=== PATIENT | female | born 1950 | race Caucasian/White ===

== ENCOUNTER → 2020-07-14 | Outpatient (CLI) | payer MEDICARE ==
[~2020-07-14] MED LIST: AMIT150T PO; IBUP-1223 PO; MELO15TA24 PO; OMEP20TA62 PO; ROPI5TAB4 PO; TRAZ50TA66 PO
[2020-07-14 14:01] LABS: BASOPHILS % (AUTO) 1 % (0-1); EOSINOPHILS % (AUTO) 1 % (1-7); LYMPHOCYTES % (AUTO) 29 % (22-44); MEAN CORPUSCULAR HEMOGLOBIN 31.2 pg (27.0-34.8); MEAN CORPUSCULAR HGB CONC 33.8 g/dL (32.4-35.8); MEAN PLATELET VOLUME 8.5 fL (7.4-10.4); MONOCYTES % (AUTO) 7 % (2-9); NEUTROPHILS % (AUTO) 62 % (42-75); PLATELET COUNT 234 x10^3/uL (130-400); RED BLOOD COUNT 4.96 x10^6/uL (3.82-5.3); RED CELL DISTRIBUTION WIDTH 13.7 % (9.6-15.2)
[2020-07-14 14:02] LABS: MD NO
[2020-07-14 14:13] LABS: ALBUMIN 3.6 g/dL (3.4-5.0); ANION GAP 6 mmol/L (5-15); CALCIUM 9.2 mg/dL (8.5-10.1); CHLORIDE 108 mmol/L (98-107)
[2020-07-14 14:16] LABS: ALANINE AMINOTRANSFERASE 31 U/L (12-78); ALKALINE PHOSPHATASE 122 U/L (45-117); BILIRUBIN,TOTAL 0.4 mg/dL (0.2-1.0); CREATININE 0.79 mg/dL (0.55-1.02); TOTAL PROTEIN 7.4 g/dL (6.4-8.2)
[2020-07-14 14:18] LABS: INTERNATIONAL NORMALIZED RATIO 1.67 (0.93-1.1); PROTHROMBIN TIME 17.7 Seconds (9.6-11.5)
== END | disposition home or self-care (01) ==
LOC: STAR 12:29
PROVIDERS: ATTEND Neurological Surgery
DX: Z01.812 Encounter for preprocedural laboratory examination (principal); Z20.822 Contact with and (suspected) exposure to COVID-19; D32.0 Benign neoplasm of cerebral meninges
CPT/HCPCS: 36415; 80053; 85025; 85610; 85730; 93005; U0003

== ENCOUNTER 2020-07-20 05:58 | Inpatient (IN) | payer MEDICARE ==
[~2020-07-20] VITALS: Ht 157.5 cm; Wt 123.1 kg
[2020-07-20] MEDS ORDERED: BUPIVACAINE/PF 0.5% ONE (07:02)
[2020-07-20] MEDS ORDERED: CEFUROXIME 1.5 GM ONE (07:02)
[2020-07-20] MEDS ORDERED: EPINEPHRINE 1 MG/ML, 1ML ONE (07:03)
[2020-07-20] MEDS ORDERED: BACITRACIN 50,000 UNIT ONE (07:03)
[2020-07-20] MEDS ORDERED: CHLORHEXIDINE 15 ML UDC ONE (07:10)
[2020-07-20] MEDS ORDERED: LACTATED RINGERS 1,000 ML IV SCH (07:30)
[2020-07-20] MEDS ORDERED: CHLORHEXIDINE 15 ML UDC PO ONE (07:30)
[2020-07-20] MEDS ORDERED: FENTANYL PF 250 MCG/5ML ONE (10:52)
[2020-07-20] MEDS ORDERED: MIDAZOLAM 1 MG/ML, 2ML ONE (10:52)
[2020-07-20] MEDS ORDERED: REMIFENTANIL 2 MG ONE ×2 (11:14→11:15)
[2020-07-20] MEDS ORDERED: ROCURONIUM 10 MG/ML,10ML ONE (11:40)
[2020-07-20] MEDS ORDERED: CEFAZOLIN 1,000 MG ONE (11:40)
[2020-07-20] MEDS ORDERED: SUCCINYLCHOLINE 20 MG/ML, 10ML ONE (11:40)
[2020-07-20] MEDS ORDERED: ONDANSETRON 2MG/ML, 2ML ONE ×2 (11:40→15:34)
[2020-07-20] MEDS ORDERED: DEXAMETHASONE 4 MG/ML, 1ML ONE (11:40)
[2020-07-20] MEDS ORDERED: PROPOFOL 50 ML ONE (13:27)
[2020-07-20] MEDS ORDERED: EPINEPHRINE 1 MG/ML, 1ML INFIL ONE (13:28)
[2020-07-20] MEDS: FENTANYL PF 100 MCG/2ML IV PRN ×2 (14:10→14:33)
[2020-07-20] MEDS ORDERED: ACETAMINOPHEN 650 MG/20.3 ML UDC ONE (14:16)
[2020-07-20] MEDS ORDERED: FENTANYL PF 100 MCG/2ML ONE (14:16)
[2020-07-20] MEDS ORDERED: OXYcodone 5 MG/5 ML ORAL.SOL UDC ONE (14:17)
[2020-07-20] MEDS ORDERED: LABETALOL 5MG/ML, 20ML ONE (14:22)
[2020-07-20] MEDS ORDERED: ONDANSETRON 2MG/ML, 2ML IVPush PRN (14:30)
[2020-07-20] MEDS ORDERED: ACETAMINOPHEN 325 MG TABLET PO PRN (14:30)
[2020-07-20] MEDS ORDERED: METHOCARBAMOL 1,000 MG in DEXTROSE 5% 100 ML IV PRN (14:30)
[2020-07-20] MEDS ORDERED: HYDROmorphone 1 MG/ML, 1ML INJ IVPush PRN (14:30)
[2020-07-20] MEDS ORDERED: MEPERIDINE/PF 25MG/0.5ML IVPush PRN (14:30)
[2020-07-20] MEDS ORDERED: OXYcodone 5 MG/5 ML ORAL.SOL UDC PO PRN (14:30)
[2020-07-20] MEDS ORDERED: hydrALAzine 20 MG/ML, 1ML IV PRN ×2 (14:30→16:00)
[2020-07-20] MEDS ORDERED: PROMETHAZINE 25 MG/ML, 1ML IVPush PRN (14:30)
[2020-07-20] MEDS ORDERED: LABETALOL 5MG/ML, 20ML IV PRN (14:30)
[2020-07-20] MEDS ORDERED: LORazepam 2 MG/ML, 1ML IVPush PRN (14:30)
[2020-07-20] MEDS ORDERED: PROMETHAZINE 25 MG/ML, 1ML ONE (14:51)
[2020-07-20] MEDS ORDERED: GADOTERATE 10 MMOL/20ML SYR ONE (15:37)
[2020-07-20] MEDS: ONDANSETRON 2MG/ML, 2ML IV PRN (16:00)
[2020-07-20] MEDS: NS + 20MEQ KCL 1,000 ML IV SCH (18:01)
[2020-07-20] MEDS: PROMETHAZINE 25 MG/ML, 1ML IM PRN ×2 (18:30→22:44)
[2020-07-20] MEDS: AMITRIPTYLINE 75 MG TABLET PO SCH (21:06)
[2020-07-20] MEDS: TRAZODONE 50MG TABLET PO SCH (21:06)
[2020-07-20] MEDS: CEFAZOLIN PMX 1GM/50ML 50 ML IVPB SCH (21:06)
[2020-07-21] MEDS: ONDANSETRON 2MG/ML, 2ML IV PRN ×2 (00:13→14:30)
[2020-07-21 04:52] LABS: ANION GAP 2 mmol/L (5-15); CALCIUM 8.3 mg/dL (8.5-10.1); CHLORIDE 111 mmol/L (98-107); CREATININE 0.66 mg/dL (0.55-1.02)
[2020-07-21 04:58] LABS: BASOPHILS % (AUTO) 0 % (0-1); EOSINOPHILS % (AUTO) 0 % (1-7); LYMPHOCYTES % (AUTO) 12 % (22-44); MEAN CORPUSCULAR HGB CONC 33.8 g/dL (32.4-35.8); MEAN PLATELET VOLUME 8.5 fL (7.4-10.4); MONOCYTES % (AUTO) 6 % (2-9); NEUTROPHILS % (AUTO) 82 % (42-75); PLATELET COUNT 190 x10^3/uL (130-400); RED CELL DISTRIBUTION WIDTH 13.6 % (9.6-15.2)
[2020-07-21] MEDS: CEFAZOLIN PMX 1GM/50ML 50 ML IVPB SCH (05:00)
[2020-07-21] MEDS: NS + 20MEQ KCL 1,000 ML IV SCH ×2 (06:00→19:26)
[2020-07-21] MEDS: SENNA/DOCUSATE TABLET PO SCH (09:00)
[2020-07-21] MEDS: OMEPRAZOLE 20 MG CAPSULE.DR PO SCH (09:25)
[2020-07-21] MEDS: OXYcodone 5 MG/5 ML ORAL.SOL UDC PO PRN ×3 (09:27→18:33)
[2020-07-21] MEDS: ROPINIROLE 0.25MG TABLET PO SCH (19:33)
[2020-07-21] MEDS: AMITRIPTYLINE 75 MG TABLET PO SCH (19:33)
[2020-07-21] MEDS: TRAZODONE 50MG TABLET PO SCH (19:33)
[2020-07-21 20:01] VITALS: BP 110/72
[2020-07-22 00:34] VITALS: BP 110/67
[2020-07-22] MEDS: OMEPRAZOLE 20 MG CAPSULE.DR PO SCH (06:09)
[2020-07-22 06:43] VITALS: BP 114/54
[2020-07-22] MEDS: NS + 20MEQ KCL 1,000 ML IV SCH (07:20)
[2020-07-22] MEDS: SENNA/DOCUSATE TABLET PO SCH (08:49)
[2020-07-22] MEDS: ROPINIROLE 0.25MG TABLET PO SCH (08:50)
[2020-07-22 12:59] VITALS: BP 137/81
[2020-07-22] MEDS: OXYcodone 5 MG/5 ML ORAL.SOL UDC PO PRN (18:04)
[2020-07-22] MEDS: ONDANSETRON 2MG/ML, 2ML IV PRN (19:47)
[2020-07-22 20:00] VITALS: BP 120/80
[2020-07-22] MEDS: AMITRIPTYLINE 75 MG TABLET PO SCH (20:19)
[2020-07-22] MEDS: TRAZODONE 50MG TABLET PO SCH (20:19)
[2020-07-23] MEDS: NS + 20MEQ KCL 1,000 ML IV SCH (00:24)
[2020-07-23 02:09] VITALS: BP 119/75
[2020-07-23] MEDS: OMEPRAZOLE 20 MG CAPSULE.DR PO SCH (06:12)
[2020-07-23] MEDS: OXYcodone 5 MG/5 ML ORAL.SOL UDC PO PRN ×2 (06:13→17:54)
[2020-07-23 07:58] VITALS: BP 169/84
[2020-07-23] MEDS ORDERED: BISACODYL 10 MG SUPP PR ONE (08:00)
[2020-07-23] MEDS: ROPINIROLE 0.25MG TABLET PO SCH (08:57)
[2020-07-23] MEDS: SENNA/DOCUSATE TABLET PO SCH (08:58)
[2020-07-23] MEDS: MEROPENEM 1 GM in SODIUM CHLORIDE 0.9% 100 ML IV SCH ×2 (11:21→19:30)
[2020-07-23] MEDS: DAPTOMYCIN 900 MG in SODIUM CHLORIDE 0.9% 100 ML IV SCH (12:01)
[2020-07-23 13:15] VITALS: BP 133/87
[2020-07-23 19:35] VITALS: BP 138/84
[2020-07-23] MEDS: TRAZODONE 50MG TABLET PO SCH (20:29)
[2020-07-23] MEDS: AMITRIPTYLINE 75 MG TABLET PO SCH (20:29)
[2020-07-24 02:04] VITALS: BP 130/78
[2020-07-24] MEDS: MEROPENEM 1 GM in SODIUM CHLORIDE 0.9% 100 ML IV SCH ×3 (02:57→23:06)
[2020-07-24] MEDS: OMEPRAZOLE 20 MG CAPSULE.DR PO SCH (05:46)
[2020-07-24 06:48] VITALS: BP 126/79
[2020-07-24] MEDS: ROPINIROLE 0.25MG TABLET PO SCH (08:53)
[2020-07-24] MEDS: SENNA/DOCUSATE TABLET PO SCH (08:53)
[2020-07-24] MEDS: DAPTOMYCIN 900 MG in SODIUM CHLORIDE 0.9% 100 ML IV SCH (12:26)
[2020-07-24 13:29] VITALS: BP 129/84
[2020-07-24] MEDS ORDERED: BISACODYL 10 MG SUPP PR ONE (18:30)
[2020-07-24 19:19] VITALS: BP 137/84
[2020-07-24] MEDS: AMITRIPTYLINE 75 MG TABLET PO SCH (21:12)
[2020-07-24] MEDS: OXYcodone 5 MG/5 ML ORAL.SOL UDC PO PRN (21:12)
[2020-07-24] MEDS: TRAZODONE 50MG TABLET PO SCH (21:12)
[2020-07-25 00:34] VITALS: BP 128/70
[2020-07-25] MEDS: OMEPRAZOLE 20 MG CAPSULE.DR PO SCH (05:49)
[2020-07-25 07:00] VITALS: BP 143/78
[2020-07-25] MEDS: MEROPENEM 1 GM in SODIUM CHLORIDE 0.9% 100 ML IV SCH ×3 (07:28→22:54)
[2020-07-25] MEDS: ROPINIROLE 0.25MG TABLET PO SCH (08:08)
[2020-07-25] MEDS: SENNA/DOCUSATE TABLET PO SCH (08:08)
[2020-07-25] MEDS: OXYcodone 5 MG/5 ML ORAL.SOL UDC PO PRN ×2 (10:51→22:57)
[2020-07-25] MEDS: DAPTOMYCIN 900 MG in SODIUM CHLORIDE 0.9% 100 ML IV SCH (11:06)
[2020-07-25 13:31] VITALS: BP 124/75
[2020-07-25] MEDS: TRAZODONE 50MG TABLET PO SCH (19:55)
[2020-07-25] MEDS: AMITRIPTYLINE 75 MG TABLET PO SCH (19:55)
[2020-07-25 20:37] VITALS: BP 113/75
[2020-07-26 01:23] VITALS: BP 131/73
[2020-07-26] MEDS: OMEPRAZOLE 20 MG CAPSULE.DR PO SCH (06:30)
[2020-07-26] MEDS: MEROPENEM 1 GM in SODIUM CHLORIDE 0.9% 100 ML IV SCH (06:31)
[2020-07-26 06:45] VITALS: BP 120/78
[2020-07-26 06:54] LABS: BASOPHILS % (AUTO) 1 % (0-1); EOSINOPHILS % (AUTO) 3 % (1-7); LYMPHOCYTES % (AUTO) 33 % (22-44); MEAN CORPUSCULAR HGB CONC 33.6 g/dL (32.4-35.8); MEAN PLATELET VOLUME 8.2 fL (7.4-10.4); MONOCYTES % (AUTO) 7 % (2-9); NEUTROPHILS % (AUTO) 57 % (42-75); PLATELET COUNT 225 x10^3/uL (130-400); RED BLOOD COUNT 4.13 x10^6/uL (3.82-5.3); RED CELL DISTRIBUTION WIDTH 13.6 % (9.6-15.2)
[2020-07-26 07:04] LABS: ALANINE AMINOTRANSFERASE 33 U/L (12-78); ANION GAP 6 mmol/L (5-15); CALCIUM 8.6 mg/dL (8.5-10.1); CHLORIDE 107 mmol/L (98-107)
[2020-07-26 07:12] LABS: ALKALINE PHOSPHATASE 136 U/L (45-117); BILIRUBIN,TOTAL 0.6 mg/dL (0.2-1.0); CREATINE KINASE, TOTAL 122 U/L (26-192); TOTAL PROTEIN 6.5 g/dL (6.4-8.2)
[2020-07-26] MEDS: ROPINIROLE 0.25MG TABLET PO SCH (08:49)
[2020-07-26] MEDS: SENNA/DOCUSATE TABLET PO SCH (08:50)
[2020-07-26 10:20] LABS: HCT (SEDRATE) 37.8 % (34.6-47.8)
[2020-07-26] MEDS: DAPTOMYCIN 900 MG in SODIUM CHLORIDE 0.9% 100 ML IV SCH (11:34)
[2020-07-26] MEDS ORDERED: ERTAPENEM 1 GM in SODIUM CHLORIDE 0.9% 50 ML IV SCH (12:30)
[2020-07-26] MEDS: OXYcodone 5 MG/5 ML ORAL.SOL UDC PO PRN (13:14)
== END 2020-07-26 16:45 | disposition home or self-care (01) | DRG 516 ==
LOC: ORIP 05:58 → EDSTATUS 10:00 → CCU 15:16 → 3N 07-21 15:53 → DCLOUNGE 07-26 16:34
PROVIDERS: ADMIT Neurological Surgery; ATTEND Internal Medicine
PROC: 0NB10ZZ Excision of Frontal Bone, Open Approach (ICD-10-PCS; 2020-07-20)
PROC: 00B20ZZ Excision of Dura Mater, Open Approach (ICD-10-PCS; principal; 2020-07-20 12:00)
PROC: 02HV33Z Insertion of Infusion Device into Superior Vena Cava, Percutaneous Approach (ICD-10-PCS; 2020-07-24)
PROC: B548ZZA Ultrasonography of Superior Vena Cava, Guidance (ICD-10-PCS; 2020-07-24)
PROC: B5181ZA Fluoroscopy of Superior Vena Cava using Low Osmolar Contrast, Guidance (ICD-10-PCS; 2020-07-24)
DX: M86.68 Other chronic osteomyelitis, other site (principal); Z68.42 Body mass index [BMI] 45.0-49.9, adult; J32.9 Chronic sinusitis, unspecified; E66.9 Obesity, unspecified; Z87.442 Personal history of urinary calculi
CPT/HCPCS: 36415; 36573; 70553; 80048; 80053; 82550; 85025; 85651; 86140; 87015; 87070; 87075; 87081; 87102; 87116; 87176; 87205; 87206; 88304; 88305; 88311; 88331; C1713; G0378; J0171; J0690; J0697; J0878; J1100; J1335; J2185; J2250; J2270; J2405; J2550; J2704; J3010; J3480; A4648; A9575; C1751; C1781; J0330; J0360; J7120